=== PATIENT | male | born 1985 | race Two or more races ===

== ENCOUNTER 2022-09-12 06:00 | Day surgery (SDC) | payer OTHER ==
[~2022-09-12] VITALS: Ht 177.8 cm; Wt 68.0 kg
[2022-09-12] MEDS ORDERED: PERCOCET 5-3251 EACH PO (10:31)
== END 2022-09-12 15:00 | disposition home or self-care (01) ==
LOC: CIR.AMB 06:00
PROVIDERS: ATTEND Surgery
DX: K60.3 Anal fistula (principal); K62.89 Other specified diseases of anus and rectum; L29.0 Pruritus ani; F12.90 Cannabis use, unspecified, uncomplicated; Z20.822 Contact with and (suspected) exposure to COVID-19

== ENCOUNTER 2023-02-26 07:53 | Day surgery (SDC) | payer OTHER ==
[~2023-02-26] VITALS: Ht 177.8 cm; Wt 68.0 kg
[~2023-02-26 07:53] MED LIST: PERCOCET 5-3251 EACH PO
[2023-02-26] MEDS ORDERED: OXYC1TAB9 PO (14:08)
== END 2023-02-26 18:30 | disposition home or self-care (01) ==
LOC: CIR.AMB 07:53
PROVIDERS: ATTEND Surgery
DX: K60.3 Anal fistula (principal); K62.89 Other specified diseases of anus and rectum; L29.0 Pruritus ani; Z20.822 Contact with and (suspected) exposure to COVID-19; I10 Essential (primary) hypertension